=== PATIENT | female | born 1985 | race Caucasian/White ===

== ENCOUNTER → 2019-10-11 08:01 | Outpatient (CLI) | payer MEDICAID, SELFPAY ==
--- NOTE | 2019-10-11 | DI.RAD.S_ITS ---
PROCEDURE: XR CERVICAL SPINE 4V OR 5V INDICATIONS: NECK PAIN TECHNIQUE: 5 views of the cervical spine acquired. COMPARISON: None. FINDINGS: Bones: No fractures or dislocations to the T1 level. Oblique images demonstrate no bony foraminal stenoses. Soft tissues: No prevertebral soft tissue swelling. IMPRESSION: Normal for age, source of neck pain is not found. Dictated by: Dylan Gregory M.D. on 10/11/2019 at 10:00 Approved by: Dylan Gregory M.D. on 10/11/2019 at 10:00
== END ==
PROVIDERS: Visit Provider Physician Assistant
DX: M54.2 Cervicalgia (principal)
CPT/HCPCS: 72050

== ENCOUNTER 2019-12-14 14:40 | Emergency (ER) | payer MEDICAID, SELFPAY ==
[2019-12-14 14:48] VITALS: BP 143/84; PULSE 70; RESP 14; TEMP 36.8; O2SAT 97; BMI 35.4
--- NOTE | 2019-12-15 07:49 | ED.HA ---
HPI - Headache General Chief Complaint: Headache Stated Complaint: headache Mode of arrival: Ambulatory History of Present Illness HPI Narrative: This patient was not seen by myself, interviewed, or examined. The patient left without treatment and without being seen. Patient History Social History (System 10/13/19 @ 13:14 by Sharita Mccray) Smoking Status: Never smoker Smoking Status: Never smoker alcohol intake frequency: a few times a month Substance Use Type: marijuana Exam Initial Vital Signs Initial Vital Signs: Vital Signs Temperature 98.2 F 12/14/19 14:48 Pulse Rate 70 12/14/19 14:48 Respiratory Rate 14 12/14/19 14:48 Blood Pressure 143/84 H 12/14/19 14:48 Pulse Oximetry 97 12/14/19 14:48 MDM - Headache MDM Narrative Medical decision making narrative: This patient was not seen by myself, interviewed, or examined. This patient left without treatment. Discharge Plan Departure Patient Disposition: Left Without Being Seen Clinical Impression: Patient left after triage Discharge Date/Time: 12/14/19 15:46
== END 2019-12-14 15:46 | disposition left against medical advice (07) ==
PROVIDERS: Emergency Provider Emergency Medicine; PCP Physician Assistant
DX: R51 Headache (principal)
CPT/HCPCS: 99281

== ENCOUNTER → 2021-05-28 10:10 | Outpatient (CLI) | payer MEDICAID, SELFPAY ==
--- NOTE | 2021-05-28 | DI.RAD.S_ITS ---
PROCEDURE: XR CERVICAL SPINE 2V OR 3V INDICATIONS: BILATERAL HAND NUMBNESS TECHNIQUE: 3 view(s) of the cervical spine were acquired. COMPARISON: [facility], CR, XR CERVICAL SPINE 4V OR 5V, 10/11/2019, 8:11. FINDINGS: Bones: No fractures or dislocations to the T1 level. The lateral masses of C1 appear intact on the odontoid view. No suspicious bony lesions. Loss of lordosis which could be related to muscle spasm, rigidity or simply positional. Soft tissues: No prevertebral soft tissue swelling. IMPRESSION: Loss of lordosis; otherwise normal C-spine. Dictated by: Serjio Wilkins RR Interpreted: Dylan Gregory MD on 05/28/2021 at 10:40 Transcribed by: CRISTIANE on 05/28/2021 at 10:41 Approved by: Dylan Gregory M.D. on 05/28/2021 at 11:33
== END ==
PROVIDERS: PCP Physician Assistant; Referring Provider Family Medicine; Visit Provider Family Medicine
DX: R20.0 Anesthesia of skin (principal)
CPT/HCPCS: 72040